=== PATIENT | male | born 1935 | race Caucasian/White ===

== ENCOUNTER → 2017-03-07 13:31 | Outpatient (CLI) | payer MEDICARE, MEDICAID, SELFPAY ==
[2017-03-07 14:32] LABS: Basophils % 0.5 % (0.1-2.0); Eosinophils # 0.1 K/mm3 (0.0-0.4); Eosinophils % 1.4 % (0.1-12.0); Hematocrit 48.4 % (42.0-52.0); Hemoglobin 15.6 g/dL (14.1-18.0); Lymphocytes # 1.4 K/mm3 (0.7-4.5); Lymphocytes % 23.2 K/mm3 (10-50); Mean Corpuscular HGB Conc 32.3 g/dL (31.8-35.4); Mean Corpuscular Hemoglobin 29.2 pg (27.0-31.2); Mean Corpuscular Volume 90.4 fl (80-94); Monocytes # 0.4 K/mm3 (0.1-1.0); Monocytes % 6.2 % (1.7-9.3); Neutrophils # 4.2 K/mm3 (1.8-7.8); Neutrophils % 68.6 % (37.0-80.0); Platelet Count 138 K/mm3 (142-424); Red Blood Count 5.36 M/mm3 (4.60-6.20); Red Cell Distribution Width 13.6 % (11.5-17.5); White Blood Count 6.1 K/mm3 (4.8-10.8)
[2017-03-07 14:49] LABS: Hemoglobin A1C 6.2 % (0.0-7.0)
[2017-03-07 17:56] LABS: Alanine Aminotransferase 18 U/L (12-78); Albumin Level 4.1 gm/dL (3.4-5.0); Albumin/Globulin Ratio 1.5 (1.1-1.8); Alkaline Phosphatase 103 U/L (46-116); Aspartate Amino Transferase 12 U/L (15-37); Bilirubin,Total 0.6 mg/dL (0.2-1.0); Blood Urea Nitrogen 12 mg/dL (7-18); Calcium 9.1 mg/dL (8.5-10.1); Carbon Dioxide 29 mmol/L (21.0-32.0); Chloride 102 mmol/L (98-107); Creatinine,Serum 0.93 mg/dL (0.70-1.30); Estimated Glomerular Filt Rate > 60 ml/min (>60); GFR (African American) > 60 ML/MIN (>60); Globulin 2.7 gm/dl (1.3-3.2); Glucose 85 mg/dL (74-106); Sodium 138 mmol/L (136-145); Thyroid Stimulating Hormone 3.46 uIU/ml (0.358-3.740); Total Protein,Serum 6.8 gm/dL (6.4-8.2)
== END ==
PROVIDERS: PCP Nurse Practitioner Family; Visit Provider Nurse Practitioner Family
DX: R73.9 Hyperglycemia, unspecified (principal); E03.9 Hypothyroidism, unspecified
CPT/HCPCS: 36415; 80053; 83036; 84443; 85025

== ENCOUNTER → 2017-08-05 14:47 | Outpatient (CLI) | payer MEDICARE, MEDICAID, SELFPAY ==
--- NOTE | 2017-08-05 14:54 | XR_ITS ---
XR foot LT min 3V HISTORY: ITS.REASON: ATTN TO 2ND TOE, LT FOOT PAIN ORDERING PHYSICIAN: Zee Piña PATIENT AGE: 81 years COMPARISON: None FINDINGS: There is mild hallux valgus with mild osteoarthritic change of the first metatarsophalangeal joint. There is a well-circumscribed defect at the distal and medial aspect of the first metatarsal with some mild overlying soft tissue swelling. Gout is a consideration with a punched out lesion. No acute fracture or dislocation is evident. There is mild flexion of the toes. Mild hypertrophic changes are present along the dorsal distal aspect of the talus. IMPRESSION: 1. Punched out appearing lesion of the distal first metatarsal with soft tissue swelling compatible with gout with mild hallux valgus. 2. Otherwise negative
== END ==
PROVIDERS: PCP Nurse Practitioner Family; Visit Provider Nurse Practitioner Family
DX: M79.672 Pain in left foot (principal)
CPT/HCPCS: 73630

== ENCOUNTER → 2017-08-08 09:05 | Outpatient (CLI) | payer MEDICARE, MEDICAID, SELFPAY ==
[2017-08-08 09:46] LABS: Basophils % 0.6 % (0.1-2.0); Eosinophils # 0.1 K/mm3 (0.0-0.4); Eosinophils % 1.4 % (0.1-12.0); Hematocrit 53.1 % (42.0-52.0); Hemoglobin 16.8 g/dL (14.1-18.0); Lymphocytes # 1.1 K/mm3 (0.7-4.5); Lymphocytes % 17.7 K/mm3 (10-50); Mean Corpuscular HGB Conc 31.7 g/dL (31.8-35.4); Mean Corpuscular Hemoglobin 28.9 pg (27.0-31.2); Mean Corpuscular Volume 91.2 fl (80-94); Monocytes # 0.4 K/mm3 (0.1-1.0); Neutrophils # 4.6 K/mm3 (1.8-7.8); Neutrophils % 73.3 % (37.0-80.0); Platelet Count 137 K/mm3 (142-424); Red Blood Count 5.82 M/mm3 (4.60-6.20); Red Cell Distribution Width 14.1 % (11.5-17.5); White Blood Count 6.3 K/mm3 (4.8-10.8)
[2017-08-08 10:40] LABS: Hemoglobin A1C 5.6 % (0.0-7.0)
[2017-08-08 10:42] LABS: Alanine Aminotransferase 18 U/L (12-78); Albumin/Globulin Ratio 1.5 (1.1-1.8); Alkaline Phosphatase 86 U/L (46-116); Anion Gap 13.3 mEq/L (5-15); Aspartate Amino Transferase 4 U/L (15-37); Bilirubin,Total 0.6 mg/dL (0.2-1.0); Blood Urea Nitrogen 17 mg/dL (7-18); Calcium 9.1 mg/dL (8.5-10.1); Carbon Dioxide 30 mmol/L (21.0-32.0); Chloride 105 mmol/L (98-107); Chol/HDL Ratio 4.2 (1-3.5); Cholesterol 151 mg/dL (140-200); Creatinine,Serum 1.07 mg/dL (0.70-1.30); Creatinine,Urine Random 68 mg/dL (20-320); Estimated Glomerular Filt Rate 67 ml/min (>60); GFR (African American) 81 ML/MIN (>60); Globulin 2.7 gm/dl (1.3-3.2); Glucose 124 mg/dL (74-106); HDL Cholesterol 36 mg/dL (27-67); LDL Cholesterol 95 mg/dL (0-130); Potassium 5.3 mmoL/L (3.5-5.1); Sodium 143 mmol/L (136-145); Total Protein,Serum 6.7 gm/dL (6.4-8.2); Triglycerides 99 mg/dL (30-200); Uric Acid 5.7 mg/dL (2.6-7.2); VLDL Cholesterol 20 mg/dL (0-40)
== END ==
PROVIDERS: Visit Provider Nurse Practitioner Family
DX: J41.0 Simple chronic bronchitis (principal); R73.03 Prediabetes; I10 Essential (primary) hypertension; E03.9 Hypothyroidism, unspecified; Q82.2 Congenital cutaneous mastocytosis; M79.672 Pain in left foot
CPT/HCPCS: 36415; 80053; 80061; 82043; 82570; 83036; 84443; 84550; 85025

== ENCOUNTER → 2018-03-18 10:19 | Outpatient (POV) | payer MEDICARE, MEDICAID, SELFPAY | PROVIDERS: Visit Provider Otolaryngology | DX: Z00.00 Encounter for general adult medical examination without abnormal findings (principal) ==

== ENCOUNTER → 2018-03-20 11:45 | Outpatient (CLI) | payer MEDICARE, MEDICAID, SELFPAY ==
[2018-03-20 13:01] LABS: Hemoglobin A1C 5.7 % (0.0-7.0)
[2018-03-20 13:04] LABS: Alanine Aminotransferase 21 U/L (12-78); Albumin Level 3.9 gm/dL (3.4-5.0); Albumin/Globulin Ratio 1.4 (1.1-1.8); Alkaline Phosphatase 77 U/L (46-116); Anion Gap 13.4 mEq/L (5-15); Aspartate Amino Transferase 12 U/L (15-37); Bilirubin,Total 0.7 mg/dL (0.2-1.0); Blood Urea Nitrogen 13 mg/dL (7-18); Calcium 8.7 mg/dL (8.5-10.1); Carbon Dioxide 29 mmol/L (21.0-32.0); Chloride 103 mmol/L (98-107); Chol/HDL Ratio 4.5 (1-3.5); Cholesterol 165 mg/dL (140-200); Creatinine,Serum 0.99 mg/dL (0.70-1.30); Estimated Glomerular Filt Rate 73 ml/min (>60); GFR (African American) 88 ML/MIN (>60); Globulin 2.7 gm/dl (1.3-3.2); Glucose 116 mg/dL (74-106); HDL Cholesterol 37 mg/dL (27-67); LDL Cholesterol 107 mg/dL (0-130); Potassium 4.4 mmoL/L (3.5-5.1); Sodium 141 mmol/L (136-145); Total Protein,Serum 6.6 gm/dL (6.4-8.2); Triglycerides 106 mg/dL (30-200); VLDL Cholesterol 21 mg/dL (0-40)
== END ==
PROVIDERS: Visit Provider Nurse Practitioner Family
DX: R73.03 Prediabetes (principal); E78.2 Mixed hyperlipidemia; E03.9 Hypothyroidism, unspecified
CPT/HCPCS: 36415; 80053; 80061; 83036; 84443

== ENCOUNTER → 2018-04-08 09:30 | Outpatient (POV) | payer MEDICARE, MEDICAID, SELFPAY ==
[2018-04-08 18:33] LABS: Prostate Specific Ag Screen 4.3 ng/mL (0.0-4.0)
== END ==
PROVIDERS: Urology; Visit Provider Otolaryngology
DX: Z12.5 Encounter for screening for malignant neoplasm of prostate (principal); R97.20 Elevated prostate specific antigen [PSA]
CPT/HCPCS: 36415; G0103

== ENCOUNTER → 2018-06-10 12:39 | Outpatient (CLI) | payer MEDICARE, MEDICAID, SELFPAY ==
--- NOTE | 2018-06-10 12:51 | CT_ITS ---
CT Temporal bone Without INDICATION: ITS.REASON: GRANULATION ANOMALY,EQUILIBRIUM DISORDER,PRESBYCUSIS BOTH EA ORDERING PHYSICIAN: Jaqui Chandler MD PATIENT AGE: 82 years COMPARISON: None TECHNIQUE: Axial images are obtained without contrast. Sagittal and coronal reformatted images are reviewed as well. All CT scans at the facility use one or more dose reduction, viz: automated exposure control, ma/kV adjustment per patient size (including targeted exams where dose is matched to indication, i.e. head), or iterative reconstruction technique. FINDINGS: Report is delayed waiting on appropriate history and appropriate reformats. Outside studies are attempted to be obtained but are reportedly not available. It appears that the patient has had a prior bilateral mastoidectomy with defects within the mastoid sinus inferiorly and laterally. Opacification is present involving the mastoid region on both sides with soft tissue density. Normal air ossicles are not identified on either side. There is opacification of the left middle ear with some mild expansion of the middle ear cavity. Gas density is noted within the left eustachian tube. Opacification also noted of the right middle ear not quite as extensive or expanded as the left side. There is an air present within the right eustachian tube. There is erosion of the scutum on both sides more extensive on the left. Incidental note made of mild mucosal thickening of the ethmoid sinuses. Severe osteoarthritic changes are present of the left TMJ. IMPRESSION: 1. There has been bilateral mastoidectomy with opacification of the mastoid sinuses. 2. Bilateral middle ear opacification more extensive on the left with some faint calcification within the opacification suggesting long-term inflammatory change. There is mild expansion of the left middle ear cavity. The inner ear ossicles are not identified on either side. 3. There is erosion of the scutum on both sides with partial epitympanic opacification bilaterally. 4. Severe osteoarthritis of the left TMJ
== END ==
PROVIDERS: PCP Internal Medicine Adolescent Medicine; Visit Provider Otolaryngology
DX: D72.0 Genetic anomalies of leukocytes (principal); R42 Dizziness and giddiness; H91.13 Presbycusis, bilateral; H69.83 Other specified disorders of Eustachian tube, bilateral
CPT/HCPCS: 70480

== ENCOUNTER → 2018-07-08 09:56 | Outpatient (POV) | payer MEDICARE, MEDICAID, SELFPAY | PROVIDERS: Visit Provider Otolaryngology | DX: Z00.00 Encounter for general adult medical examination without abnormal findings (principal) ==

== ENCOUNTER → 2018-10-15 09:46 | Outpatient (CLI) | payer MEDICARE, MEDICAID, SELFPAY ==
[2018-10-15 10:58] LABS: Hemoglobin A1C 5.8 % (0.0-7.0)
[2018-10-15 16:13] LABS: Alanine Aminotransferase 12 U/L (12-78); Albumin Level 3.7 gm/dL (3.4-5.0); Albumin/Globulin Ratio 1.4 (1.1-1.8); Alkaline Phosphatase 80 U/L (46-116); Anion Gap 12.5 mEq/L (5-15); Aspartate Amino Transferase 8 U/L (15-37); Bilirubin,Total 0.6 mg/dL (0.2-1.0); Blood Urea Nitrogen 14 mg/dL (7-18); Calcium 8.9 mg/dL (8.5-10.1); Carbon Dioxide 28 mmol/L (21.0-32.0); Chloride 104 mmol/L (98-107); Chol/HDL Ratio 4.9 (1-3.5); Cholesterol 157 mg/dL (140-200); Creatinine,Serum 1.01 mg/dL (0.70-1.30); Estimated Glomerular Filt Rate 71 ml/min (>60); GFR (African American) 86 ML/MIN (>60); Globulin 2.7 gm/dl (1.3-3.2); Glucose 126 mg/dL (74-106); HDL Cholesterol 32 mg/dL (27-67); LDL Cholesterol 105 mg/dL (0-130); Potassium 4.5 mmoL/L (3.5-5.1); Prostate Specific Ag, Diagnost 3.74 ng/mL (0.0-4.0); Sodium 140 mmol/L (136-145); Thyroid Stimulating Hormone 3.36 uIU/ml (0.358-3.740); Total Protein,Serum 6.4 gm/dL (6.4-8.2); Triglycerides 102 mg/dL (30-200); VLDL Cholesterol 20 mg/dL (0-40)
[2018-10-17 10:10] LABS: Creatinine, Urine 92.6 mg/dL (Not Estab.); Microalbumin, Urine 3.7 ug/mL (Not Estab.)
== END ==
PROVIDERS: Visit Provider Nurse Practitioner Family
DX: E11.9 Type 2 diabetes mellitus without complications (principal); N40.0 Benign prostatic hyperplasia without lower urinary tract symptoms; E03.9 Hypothyroidism, unspecified; I10 Essential (primary) hypertension; E78.2 Mixed hyperlipidemia; R97.20 Elevated prostate specific antigen [PSA]
CPT/HCPCS: 36415; 80053; 80061; 82043; 82570; 83036; 84153; 84443

== ENCOUNTER 2019-07-14 15:12 | Emergency (ER) | payer MEDICARE, MEDICAID, SELFPAY ==
[2019-07-14 15:13] VITALS: BP 180/86; PULSE 70; RESP 16; TEMP 36.6; O2SAT 94; BMI 33.8; BMI 34.9
--- NOTE | 2019-07-14 15:14 | CT_ITS ---
PROCEDURE: CT HEAD/BRAIN WO CON CLINICAL INDICATION: AMS, LOSS OF VISION, ACHING EYES AND ARMS COMPARISON: HEADWO CT head/brain wo con from 10/31/2017 TECHNIQUE: Axial images obtained. All CT scans at the facility use one or more dose reduction, viz: automated exposure control, ma/kV adjustment per patient size (including targeted exams where dose is matched to indication, i.e. head), or iterative reconstruction technique. FINDINGS: There is a large area of intraparenchymal hemorrhage in the left occipital lobe. This intraparenchymal hematoma measures 4.8 by 3.2 cm. There is associated contiguous acute hemorrhage into the left lateral ventricle. There is mild midline shift to the right at the level of the lateral ventricle of approximately 4 mm. There is mild dilatation of the right lateral ventricle compared to the previous study suggesting developing right-sided hydrocephalus. There is generalized atrophy with periventricular ischemic gliotic change. There has been prior bilateral mastoid surgery with opacified remaining mastoids and opacified left middle ear and external auditory canal with some thickening of the right tympanic membrane noted there is mucosal thickening of the ethmoid sinuses. 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 Dr. Ny was notified of the above findings by telephone 07/14/2019 at 3:30 p.m. Dictated by: Ousmane Diggs MD 07/14/2019 15:36 Electronically signed by Ousmane Diggs MD in [place] 07/14/2019 15:36
--- NOTE | 2019-07-14 15:16 | PC.NURSE ---
PT TO CT
--- NOTE | 2019-07-14 15:32 | PC.NURSE ---
speaking with CLARK
--- NOTE | 2019-07-14 15:32 | PC.NURSE ---
Called resp and advised them we were fixing to intubate pt
[2019-07-14 15:43] VITALS: BP 119/64; PULSE 78; RESP 16; O2SAT 100
--- NOTE | 2019-07-14 15:47 | XR_ITS ---
PROCEDURE: XR CHEST PORTABLE CLINICAL HISTORY: TUBE PLACEMENT Respiratory failure COMPARISON: CXR1 CHEST-PORTABLE from 08/12/2015 CXR CHEST(2 VIEWS-NOT PORTABLE) from 10/30/2015 [id number] XR ribs LT min 3V w CXR1V from 10/31/2017 FINDINGS: Endotracheal tube has been placed. The tip is in good position 3 cm above the hortensia. The tip is at the T5 level.. Normal heart size. There is some patchy density in the right lower lobe suggesting atelectasis or infiltrate. Bronchial thickening is noted. There is severe subacromial stenosis on the right consistent with rotator cuff tear. IMPRESSION: 1. Endotracheal tube in good position. 2. Patchy atelectasis or infiltrate in the right lower lobe Dictated by: Ousmane Diggs MD 07/14/2019 17:03 Electronically signed by Ousmane Diggs MD in [place] 07/14/2019 17:03
[2019-07-14 15:49] LABS: Chloride 101 mmol/L (98-107); Potassium 4.1 mmoL/L (3.5-5.1); Sodium 136 mmol/L (136-145)
--- NOTE | 2019-07-14 15:50 | PC.NURSE ---
calling [employer] to check flight status
[2019-07-14 15:52] LABS: Alanine Aminotransferase 11 U/L (12-78); Albumin Level 4.7 g/dl (3.5-5.0); Albumin/Globulin Ratio 1.7 (1.1-1.8); Alkaline Phosphatase 85 U/L (38-126); Anion Gap 11.1 mEq/L (5-15); Aspartate Amino Transferase 21 U/L (17-59); Bilirubin,Total 0.9 mg/dl (0.2-1.3); Blood Urea Nitrogen 12 mg/dl (9-20); Calcium 9.7 mg/dl (8.4-10.2); Carbon Dioxide 28 mmol/L (22.0-30.0); Creatinine Clearance Estimated 69 mL/min (50-200); Estimated Glomerular Filt Rate 81 ml/min (>60); GFR (African American) 98 ML/MIN (>60); Globulin 2.8 g/dL (1.3-3.2); Glucose 124 mg/dl (74-100); Total Protein,Serum 7.5 g/dl (6.3-8.2)
--- NOTE | 2019-07-14 15:54 | HMH.EDAMS ---
ED Disposition Clinical Impression: Altered mental status, Subarachnoid hemorrhage, Intraventricular hemorrhage, grade III Disposition: Xfer Short-Term Hosp Condition on Discharge: Critical Instructions: DI for Altered Mental Status Referrals: Provider,Referral, MD [Primary Care Provider] - - Critical Care Critical Care Time: Yes (75) Attestation: On 07/14/19, the high probability of a clinically significant, sudden or life threatening deterioration of the following system(s) required my full and direct attention, intervention and personal management. The time I documented below is in addition to time spent performing reported procedures but includes the following listed in this critical care notation. Total Critical Care Time: 75 Vital system(s) involved:: Central Nervous System, Shock (Hemorrhage) My critical care processes included: Assessment & monitoring of V/S, Initial and Re-exams, Data Review/Interpretation, Coordinating Care, Medication Orders and management, Documentation Medical Decision Making - Medical Records Medical records reviewed: Yes: I reviewed the patient's medical records. - Josue Inquiry Pt receiving controlled substance: No Vital Signs: 07/14/19 15:13 Temperature 97.8 F Temperature Source Oral Pulse Rate [Right Radial] 70 Respiratory Rate 16 Blood Pressure [Right Arm] 180/86 H Blood Pressure Mean [Right Arm] 117 Blood Pressure Source [Right Arm] Automatic Cuff Blood Pressure Position [Right Arm] Sitting 02 Sat by Pulse Oximetry 94 L Oxygen Delivery Method Room Air - Lab Data Lab results reviewed: Yes: I reviewed the patient's lab results. Lab Results 07/14/19 15:30: Sodium 136, Potassium 4.1, Chloride 101, Carbon Dioxide 28, Anion Gap 11.1, BUN 12, Creatinine 0.90, Estimated Creat Clear 69, Estimated GFR 81, Est GFR ( Amer) 98, Glucose 124 H, Calcium 9.7, Total Bilirubin 0.9, AST 21, ALT 11 L, Alkaline Phosphatase 85, Total Protein 7.5, Albumin 4.7, Globulin 2.8, Albumin/Globulin Ratio 1.7 Result diagrams: 07/14/19 15:30 Orders (Tests/Meds): ORDERS Category Date Time Status Chest XR -- portable [XR chest portable] Stat Exams 07/14/19 15:47 Ordered Complete Blood Count Auto Diff Stat Lab 07/14/19 15:30 Received UA [Urinalysis and Microscopic] Stat Lab 07/14/19 15:14 Ordered - CT Data CT Scan: Head Time Received: 15:[address] Reviewed: Yes: I have reviewed the patient's CT results, I discussed the CT results w/the radiologist, I have viewed the radiologist's interpretation Preliminary Findings: Abnormal (Patient has an acute left occipital hemorrhage associated with a left ventricular intraventricular hemorrhage with a 4 mm midline shift) Medical Decision Narrative: Spoke to Dr. Calhoun at [facility] for transfer. Altered Mental Status HPI - General Chief Complaint: Altered Mental Status Stated Complaint: AMS, LOSS OF VISION Time Seen by Provider: 07/14/19 15:54 Mode of Arrival: Wheelchair Source of Information: Patient, Medical Record Limitations: No Limitations Description of Symptoms (Recalled from ER Triage Doc. by RN): PT BROUGHT TO ED VIA HOME HEALTH NURSE WITH C/O AMS, LOSS OF VISION, AN ACHING IN HIS EYES AND ARMS. HOME HEALTH STAFF STATES THAT [facility] WERE WITH PT THIS MORNING AND STATE THAT HE WAS AT NORMAL BASELINE. PT STATES THAT HE CANNOT SEE ME. PT IS ABLE TO ANSWER MY QUESTIONS, BUT ACTS TIRED. - History of Present Illness HPI narrative: 83-year-old male complains of aching in his arms and right-sided facial droop which just recently started today. Patient states otherwise he feels well. He is slurring his speech and does have some dysarthria as well. Patient is being sent to CT for stroke protocol. Patient denies any cough or shortness of breath. Patient denies any nausea or vomiting. Patient also denies any sore throat or headache. Able to obtain the rest of the history from the patient. Patient came back from CT and
[2019-07-14 16:01] LABS: Basophils # 0.1 K/mm3 (0-0.2); Basophils % 0.5 % (0.1-2.0); Eosinophils # 0.1 K/mm3 (0.0-0.4); Eosinophils % 1.2 % (0.1-12.0); Hematocrit 50.7 % (42.0-52.0); Hemoglobin 16.8 g/dL (14.1-18.0); Lymphocytes % 10.5 % (10-50); Mean Corpuscular Volume 90.7 fl (80-94); Monocytes # 0.8 K/mm3 (0.1-1.0); Monocytes % 7.8 % (1.7-9.3); Neutrophils # 7.7 K/mm3 (1.8-7.8); Platelet Count 176 K/mm3 (142-424); Red Blood Count 5.59 M/mm3 (4.60-6.20); Red Cell Distribution Width 14.2 % (11.5-17.5); White Blood Count 9.6 K/mm3 (4.8-10.8)
--- NOTE | 2019-07-14 16:02 | PC.NURSE ---
[place] [facility] will be arriving in approx. 10 mins
[2019-07-14 16:08] LABS: ABG Base Excess -4.2 mmol/L (-2.4-2.3); ABG HCO3 21.4 mmhg (22.0-26.0); ABG Oxygen Saturation 100 % (90-100); ABG PCO2 39.2 mmhg (35.0-45.0); ABG PH 7.35 mmol/L (7.35-7.45); ABG TCO2 22.6 mmhg (23-27)
[2019-07-14 16:09] LABS: Allen's Test Non Applicable; Oxygen 100% AMBU %
[2019-07-14 16:10] LABS: Source Left Brachial
[2019-07-14 16:13] VITALS: BP 97/68; PULSE 83; RESP 16; O2SAT 98
--- NOTE | 2019-07-14 16:13 | PC.NURSE ---
Unable to place OG d/t increased ICP while trying to insert, notified
--- NOTE | 2019-07-14 16:21 | PC.NURSE ---
[employer] [facility] here to transport pt
[2019-07-14 16:24] VITALS: BP 99/64; PULSE 76; RESP 16; TEMP 36.8; O2SAT 98
--- NOTE | 2019-07-14 16:25 | PC.NURSE ---
[facility] [employer] LOADING PT UP ONTO STRETCHER AT THIS TIME.
[2019-08-06 08:50] LABS: POC Glucose,Bedside 102 (70-110)
== END 2019-07-14 16:41 | disposition short-term general hospital (02) ==
PROVIDERS: Emergency Provider Family Medicine; PCP Nurse Practitioner Family
DX: I60.9 Nontraumatic subarachnoid hemorrhage, unspecified (principal); I61.5 Nontraumatic intracerebral hemorrhage, intraventricular; F17.210 Nicotine dependence, cigarettes, uncomplicated; J44.9 Chronic obstructive pulmonary disease, unspecified; I10 Essential (primary) hypertension; E11.9 Type 2 diabetes mellitus without complications; Z88.0 Allergy status to penicillin; Z88.2 Allergy status to sulfonamides; Z88.5 Allergy status to narcotic agent
CPT/HCPCS: 70450; 71045; 80053; 82803; 82962; 85025; 96365; 96367; 96375; 99285; J0330; J2704

== ENCOUNTER 2019-08-11 22:31 | Emergency (ER) | payer MEDICARE, MEDICAID, SELFPAY ==
[2019-08-11 22:33] VITALS: BP 102/59; PULSE 85; RESP 16; TEMP 36.9; O2SAT 95; BMI 20.5
[2019-08-11 23:04] VITALS: BP 98/77; PULSE 86; O2SAT 95
--- NOTE | 2019-08-11 23:12 | XR_ITS ---
PROCEDURE: XR KUB CLINICAL INDICATION: g tube placement COMPARISON: ABDPELW/O CT ABD PELVIS W/O CONTRAST from 08/12/2015 FINDINGS: AP view of the abdomen is submitted with contrast injected into the G-tube which appears to be within the lumen of the stomach. No obvious contrast extravasation. IMPRESSION: G-tube in satisfactory position. Dictated by: Ousmnae Diggs MD 08/12/2019 07:40 Electronically signed by Ousmnae Diggs MD in [place] 08/12/2019 07:40
--- NOTE | 2019-08-11 23:12 | HMH.EDRECH ---
ED Disposition Clinical Impression: Gastrojejunostomy tube dislodgement Disposition: Xfer SNF Condition on Discharge: Good Instructions: DI for Feeding Tube Exchange Additional Instructions: resume prev orders Referrals: Provider,Referral, [Primary Care Provider] - - Critical Care Critical Care Time: No Attestation: On 08/11/19, the high probability of a clinically significant, sudden or life threatening deterioration of the following system(s) required my full and direct attention, intervention and personal management. The time I documented below is in addition to time spent performing reported procedures but includes the following listed in this critical care notation. Medical Decision Making - Medical Records Medical records reviewed: Yes: I reviewed the patient's medical records. - Josue Inquiry Pt receiving controlled substance: No Vital Signs: 08/11/19 22:33 08/11/19 23:04 Temperature 98.4 F Temperature Source Oral Pulse Rate [Right Brachial] 85 86 Respiratory Rate 16 Blood Pressure [Right Arm] 102/59 L 98/77 L Blood Pressure Mean [Right Arm] 73 84 Blood Pressure Source [Right Arm] Automatic Cuff Blood Pressure Position [Right Arm] Sitting 02 Sat by Pulse Oximetry 95 95 Oxygen Delivery Method Room Air Room Air Orders (Tests/Meds): ORDERS Category Date Time Status KUB (single view) [XR KUB] Stat Exams 08/11/19 23:12 Taken - Radiology Data #1 Image(s): KUB Image Reviewed: Yes I reviewed the patient's radiology image Preliminary Findings: Normal/NAD (g tube ok ) - Physician Consults Physician Consulted: allran Reason -: Pt condition Recheck HPI - General Chief Complaint: Recheck/Abnormal Lab/Rx Stated Complaint: G tube Time Seen by Provider: 08/11/19 23:12 Mode of Arrival: EMS Source of Information: Patient, EMS, Medical Record Limitations: Physical Limitations Description of Symptoms (Recalled from ER Triage Doc. by RN): Patient brought in by [facility] for pulling out his G tube. - History of Present Illness HPI narrative: had subarachnoid and was sent to and has peg placed about 2 weeks ago and at [facility] and pulled tube out luis MACK complaint: other (pulled out g tube ) Initial visit (ago): hour(s) Returns today for: other (pulled out g tube ) Associated symptoms: none - Related Data Home Medications Medication Instructions Recorded Confirmed levothyroxine 75 mcg capsule 75 mcg PO DAILY 11/05/17 01/21/19 nebivolol 5 mg tablet 5 mg PO DAILY 11/05/17 01/21/19 salmeterol 50 mcg/dose blister 1 inh INHALATION BID 11/05/17 01/21/19 powder for inhalation tiotropium bromide 18 mcg capsule 1 cap INHALATION DAILY 11/05/17 01/21/19 with inhalation device Previous Rx's Medication Instructions Recorded Mupirocin [Bactroban 2% Ointment 1 applicatio TP TID 7 Days #1 tube 10/01/18 22gm tube] Allergies Allergy/AdvReac Type Severity Reaction Status Date / Time codeine [CODEINE] Allergy Unknown Verified 01/21/19 10:34 penicillin G [PENICILLIN G] Allergy Unknown Verified 01/21/19 10:34 Sulfa (Sulfonamide Allergy Unknown Verified 01/21/19 10:34 Antibiotics) [SULFA (SULFONAMIDE ANTIBIOTICS)] H History - Hepatitis A Screen Drug use history?: No High risk sexual behaviors?: No History of sexually transmitted infection?: No Currently employed?: No Childcare worker?: No Do you have indoor plumbing?: Yes Do you have electricity?: Yes Attestation statement:: This patient has been screened for Hepatitis A risk factors. I have reviewed the patient's past medical history: Yes Medical History: Reports:: Asthma, Chronic Obstructive Pulmonary Disease (COPD), Hypertension Denies:: Diabetes Mellitus Type 1, Diabetes Mellitus Type 2 Other Medical History: Reports: Arthritis, Glaucoma Laterality Cases: Bilateral: Myringotomy (Ear Tubes) Other Surgeries: Yes: Other Amputation: No Fractures: No Comment: Hemorr
--- NOTE | 2019-08-11 23:21 | PC.NURSE ---
gtube placed to left upper quad abd. gastrograffin used to check placement. sent vrad for confirmation.
[2019-08-11 23:53] VITALS: BP 100/74; PULSE 110; RESP 18; TEMP 36.8; O2SAT 96
== END 2019-08-12 00:13 ==
PROVIDERS: Emergency Provider Emergency Medicine
DX: T85.528A Displacement of other gastrointestinal prosthetic devices, implants and grafts, initial encounter (principal); J44.9 Chronic obstructive pulmonary disease, unspecified; I10 Essential (primary) hypertension; F17.210 Nicotine dependence, cigarettes, uncomplicated; Z79.899 Other long term (current) drug therapy; Z88.0 Allergy status to penicillin; Z88.2 Allergy status to sulfonamides; Z88.5 Allergy status to narcotic agent
CPT/HCPCS: 43762; 74018; 99282; 99283

== ENCOUNTER 2019-11-23 14:49 | Emergency (ER) | payer MEDICARE, MEDICAID, SELFPAY ==
[2019-11-23] VITALS (8 sets, daily range): BP systolic 95–134; BP diastolic 56–74; PULSE 98–105; RESP 17–20; TEMP 36.5; O2SAT 94–98; BMI 22.2
--- NOTE | 2019-11-23 15:04 | HMH.EDGENADL ---
ED Disposition Clinical Impression: Urinary catheter complication Qualifiers: Encounter type: initial encounter Qualified Code(s): T83.9XXA - Unspecified complication of genitourinary prosthetic device, implant and graft, initial encounter Disposition: Xfer SNF Condition on Discharge: Fair Instructions: How to Care for Your Hopson Catheter -- Male Referrals: Provider,Referral, [Referring] - Time of Disposition: 16:44 - Critical Care Critical Care Time: No Attestation: On , the high probability of a clinically significant, sudden or life threatening deterioration of the following system(s) required my full and direct attention, intervention and personal management. The time I documented below is in addition to time spent performing reported procedures but includes the following listed in this critical care notation. Medical Decision Making - Medical Records Medical records reviewed: Yes: I reviewed the patient's medical records. - Josue Inquiry Pt receiving controlled substance: No Vital Signs: 11/23/19 14:51 11/23/19 15:36 Temperature 97.7 F Temperature Source Axillary Pulse Rate [Right Radial] 105 H 104 H Respiratory Rate 20 18 Blood Pressure [Right Arm] 134/70 95/56 L Blood Pressure Mean [Right Arm] 91 69 Blood Pressure Source [Right Arm] Automatic Cuff Automatic Cuff Blood Pressure Position [Right Arm] Sitting Supine 02 Sat by Pulse Oximetry 98 95 Oxygen Delivery Method Room Air - Lab Data Lab Results 11/23/19 15:25: WBC 8.9, RBC 4.17 L, Hgb 13.0 L, Hct 39.0 L, MCV 93.6, MCH 31.3 H, MCHC 33.4, RDW 14.8, Plt Count 312, MPV 9.4, Neut % (Auto) 79.8, Lymph % (Auto) 12.3, [place] % (Auto) 6.4, Eos % (Auto) 1.2, Baso % (Auto) 0.4, Neut # (Auto) 7.1, Lymph # (Auto) 1.1, [place] # (Auto) 0.6, Eos # (Auto) 0.1, Baso # (Auto) 0.0 11/23/19 15:25: Sodium 135 L, Potassium 6.6 H*, Chloride 95 L, Carbon Dioxide 34 H, Anion Gap 12.6, BUN 38 H, Creatinine 0.60 L, Estimated Creat Clear 50, Estimated GFR 129, Est GFR ( Amer) 156, Glucose 220 H, Calcium 9.5 11/23/19 15:45: Urine Color Dk yellow, Urine Appearance Cloudy, Urine pH 8.0, Ur Specific [place] 1.010, Urine Protein Trace, Urine Glucose (UA) Negative, Urine Ketones Negative, Urine Blood 3+, Urine Nitrate Negative, Urine Bilirubin Negative, Urine Urobilinogen 1.0, Ur Leukocyte Esterase Trace, Urine RBC Tntc, Urine WBC 3-5 11/23/19 16:20: Potassium 4.4 D Result diagrams: 11/23/19 15:25 11/23/19 16:20 Medical Decision Narrative: In summary this is an 84-year-old male presenting to the emergency department with urinary catheter complication. On arrival patient is clinically stable. Does have roosevelt blood from the urethral meatus. Will obtain CBC to assess for anemia. Will obtain metabolic panel to assess for renal function. Catheter able to be placed by nursing staff. Minimal difficulty. Return of urine. Laboratory results show no significant anemia or acute kidney injury. Incidentally, patient was found to be hyperkalemic with potassium of 6.6. Will obtain redraw. Repeat potassium 4.4. Patient's urinary catheter is functioning appropriately. Has yellowish urine in the bag. No active bleeding. Spoke with the assisted, regarding plans of care. They do not have any concerns other than the difficult Hopson placement. Patient will be discharged General Adult HPI - General Stated complaint: bleeding from penis Time Seen by Provider: 11/23/19 15:05 Mode of Arrival: EMS Limitations: Physical Limitations - History of Present Illness HPI narrative: 84-year-old male presenting to the emergency department with a urinary catheter complication. Patient is nonverbal. EMS and assisted staff state that he had his catheter removed today for routine change. When the new catheter was placed they only got blood back. Were unable to flush. They removed the catheter entirely and patient continued to have bleeding from the head of his penis. On arri
--- NOTE | 2019-11-23 15:13 | PC.NURSE ---
contacted [facility] to see if pt needs to have a norman catheter replaced. Staff states pt had a catheter placed last week because he got lasix and has a wound on his buttocks and they did not want pt to stay wet because of wound. States they do not think pt needs to continue to have catheter. States their main concern was the bleeding from penis. notified ER of the above.
--- NOTE | 2019-11-23 15:15 | PC.NURSE ---
contacted [facility] to ask is pt is on blood thinner and to request they send a mar. States pt is on Plavix relayed information to EDISON MACK.
[2019-11-23 15:41] LABS: Basophils % 0.4 % (0.1-2.0); Eosinophils # 0.1 K/mm3 (0.0-0.4); Eosinophils % 1.2 % (0.1-12.0); Lymphocytes # 1.1 K/mm3 (0.7-4.5); Lymphocytes % 12.3 % (10-50); Mean Corpuscular HGB Conc 33.4 g/dL (31.8-35.4); Mean Corpuscular Hemoglobin 31.3 pg (27.0-31.2); Mean Corpuscular Volume 93.6 fl (80-94); Mean Platelet Volume 9.4 fl (7.4-10.4); Monocytes # 0.6 K/mm3 (0.1-1.0); Monocytes % 6.4 % (1.7-9.3); Neutrophils # 7.1 K/mm3 (1.8-7.8); Neutrophils % 79.8 % (37.0-80.0); Platelet Count 312 K/mm3 (142-424); Red Blood Count 4.17 M/mm3 (4.60-6.20); Red Cell Distribution Width 14.8 % (11.5-17.5); White Blood Count 8.9 K/mm3 (4.8-10.8)
[2019-11-23 15:43] LABS: Chloride 95 mmol/L (98-107); Sodium 135 mmol/L (136-145)
[2019-11-23 15:46] LABS: Blood Urea Nitrogen 38 mg/dl (9-20); Calcium 9.5 mg/dl (8.4-10.2); Carbon Dioxide 34 mmol/L (22.0-30.0); Creatinine Clearance Estimated 50 mL/min (50-200); Estimated Glomerular Filt Rate 129 ml/min (>60); GFR (African American) 156 ML/MIN (>60); Glucose 220 mg/dl (74-100)
[2019-11-23 15:52] LABS: Microscopic, Urine URINE MICROSCOPIC (MICROSCOPIC)
[2019-11-23 15:53] LABS: Appearance,Urine CLOUDY (Clear); Bilirubin,Urine Negative (Negative); Blood, Urine 3+ (Negative); Color,Urine DK YELLOW (Yellow); Glucose,Urine (UA) Negative (Negative); Ketones,Urine Negative (Negative); Leukocyte Esterase,Urine TRACE (Negative); Nitrate,Urine Negative (Negative); Protein,Urine TRACE (Negative)
[2019-11-23 15:59] LABS: Anion Gap 12.6 mEq/L (5-15); Potassium 6.6 mmoL/L (3.5-5.1)
--- NOTE | 2019-11-23 16:00 | PC.NURSE ---
EDISON MACK notified per tonny evans of critical potassium result
[2019-11-23 16:03] LABS: RBC,Urine TNTC #/hpf (0-3)
[2019-11-23 16:31] LABS: Potassium 4.4 mmoL/L (3.5-5.1)
--- NOTE | 2019-11-23 16:37 | PC.NURSE ---
notified ER of repeat potassium 4x4
--- NOTE | 2019-11-23 16:43 | PC.NURSE ---
report called to caren cheney lpn at [facility] at this time attempting to contact [facility] for transport.
--- NOTE | 2019-11-23 17:04 | PC.NURSE ---
notified [facility] of transport, states they will have to wait until the other truck is back in town.
--- NOTE | 2019-11-23 18:30 | PC.NURSE ---
[facility] here for transport of pt but unable to take pt at this time r/t they got an emergency call
--- NOTE | 2019-11-23 20:20 | PC.NURSE ---
ems here for transport
== END 2019-11-23 20:33 ==
PROVIDERS: Emergency Provider Emergency Medicine; PCP Internal Medicine Adolescent Medicine
DX: T83.9XXA Unspecified complication of genitourinary prosthetic device, implant and graft, initial encounter (principal); J45.909 Unspecified asthma, uncomplicated; I10 Essential (primary) hypertension; E11.9 Type 2 diabetes mellitus without complications; Z87.891 Personal history of nicotine dependence; Z79.899 Other long term (current) drug therapy; Z88.0 Allergy status to penicillin; Z88.2 Allergy status to sulfonamides; Z88.5 Allergy status to narcotic agent
CPT/HCPCS: 36415; 80048; 81001; 84132; 85025; 99285

== ENCOUNTER 2019-12-05 06:49 | Inpatient (IN) | payer MEDICAID, OTHER, MEDICARE, SELFPAY ==
[2019-12-05] VITALS (11 sets, daily range): BP systolic 101–151; BP diastolic 59–97; PULSE 96–114; RESP 18–22; TEMP 36.6–37.6; O2SAT 89–98; BMI 24.3; BMI 19.8
--- NOTE | 2019-12-05 07:25 | HMH.EDSOB ---
ED Disposition Clinical Impression: Acute UTI (urinary tract infection), SIRS (systemic inflammatory response syndrome), SHIKHA (acute kidney injury) Hematuria Qualifiers: Hematuria type: gross Qualified Code(s): R31.0 - Gross hematuria Disposition: Admitted As Inpatient Condition on Discharge: Fair Instructions: DI for Urinary Tract Infection (UTI), DI for Urinary Tract Infection in Children Referrals: Redd Ramirez MD [Primary Care Provider] - - Critical Care Critical Care Time: No Attestation: On 12/05/19, the high probability of a clinically significant, sudden or life threatening deterioration of the following system(s) required my full and direct attention, intervention and personal management. The time I documented below is in addition to time spent performing reported procedures but includes the following listed in this critical care notation. Medical Decision Making - Medical Records Medical records reviewed: Yes: I reviewed the patient's medical records. - Josue Inquiry Pt receiving controlled substance: No Vital Signs: 12/05/19 07:14 12/05/19 07:22 12/05/19 08:17 Temperature 97.8 F Temperature Source Rectal Pulse Rate [Right] 114 H 104 H 103 H Respiratory Rate 20 Blood Pressure [Left Arm] 114/62 101/63 L 103/64 L Blood Pressure Mean [Left Arm] 79 75 77 Blood Pressure Source [Left Arm] Automatic Cuff Automatic Cuff Automatic Cuff Blood Pressure Position [Left Arm] Supine Sitting Sitting 02 Sat by Pulse Oximetry 89 L 96 92 L Oxygen Delivery Method Room Air Nasal Cannula Nasal Cannula Oxygen Flow Rate (LPM) 2 2 12/05/19 08:35 Temperature Temperature Source Pulse Rate [Right] 105 H Respiratory Rate Blood Pressure [Left Arm] 106/64 L Blood Pressure Mean [Left Arm] 78 Blood Pressure Source [Left Arm] Automatic Cuff Blood Pressure Position [Left Arm] Sitting 02 Sat by Pulse Oximetry 93 L Oxygen Delivery Method Nasal Cannula Oxygen Flow Rate (LPM) 2 - Lab Data Lab results reviewed: Yes: I reviewed the patient's lab results. Lab Results 12/05/19 07:18: WBC 13.4 H, RBC 3.69 L, Hgb 11.4 L, Hct 33.7 L, MCV 91.3, MCH 30.8, MCHC 33.7, RDW 15.0, Plt Count 223, MPV 8.9, Neut % (Auto) 81.8 H, Lymph % (Auto) 9.3 L, [place] % (Auto) 8.1, Eos % (Auto) 0.4, Baso % (Auto) 0.4, Neut # (Auto) 11.0 H, Lymph # (Auto) 1.3, [place] # (Auto) 1.1 H, Eos # (Auto) 0.1, Baso # (Auto) 0.1 12/05/19 07:18: Sodium 141, Potassium 4.8, Chloride 100, Carbon Dioxide 34 H, Anion Gap 11.8, BUN 58 H, Creatinine 1.70 H, Estimated Creat Clear 35, Estimated GFR 39 L, Est GFR ( Amer) 47 L, Glucose 171 H, Calcium 9.8, Troponin I 0.03, Lipase 22 L 12/05/19 07:18: Lactate 2.0 12/05/19 07:18: Total Bilirubin 1.1, Direct Bilirubin 0.2, Conjugated Bilirubin 0.0, Indirect Bilirubin 0.9, Unconjugated Bilirubin 0.9, AST 27, ALT 23, Alkaline Phosphatase 98, Total Protein 6.4, Albumin 3.0 L 12/05/19 07:18: Total Bilirubin 1.1, Direct Bilirubin 0.2, Conjugated Bilirubin 0.0, Indirect Bilirubin 0.9, Unconjugated Bilirubin 0.9, AST 28, ALT 24, Alkaline Phosphatase 98, Total Protein 6.4, Albumin 3.0 L 12/05/19 07:18: NT-Pro-B Natriuret Pep 778 H 12/05/19 07:18: SARS-CoV-2 IgG Ab (Rapid) Negative, SARS-CoV-2 IgM Ab (Rapid) Negative 12/05/19 07:40: Urine Color Yellow, Urine Appearance Clear, Urine pH 5.0, Ur Specific [place] >= 1.030, Urine Protein 2+, Urine Glucose (UA) Negative, Urine Ketones Trace, Urine Blood 3+, Urine Nitrate Negative, Urine Bilirubin Negative, Urine Urobilinogen 0.2, Ur Leukocyte Esterase 1+ A, Urine RBC 10-20, Urine WBC 5-10, Ur Squamous Epith Cells 3-5, Calcium Oxalate Crystal Trace, Amorphous Sediment 1+, Urine Bacteria 1+ Result diagrams: 12/05/19 07:18 12/05/19 07:18 Orders (Tests/Meds): ORDERS Category Date Time Status CT abdomen pelvis wo con Stat Cat Scan 12/05/19 07:31 Taken Troponin I Q3H Lab 12/05/19 10:30 Ordered Troponin I Q3H Lab 12/05/19 13:30 Ordered Blood Culture Stat Micro 12/05/19 07:18
--- NOTE | 2019-12-05 07:27 | XR_ITS ---
PROCEDURE: XR CHEST PORTABLE CLINICAL HISTORY: ams COMPARISON: CR CXR CHEST(2 VIEWS-NOT PORTABLE) from 10/30/2015 CR [id number] XR ribs LT min 3V w CXR1V from 10/31/2017 CR XR CHEST PORTABLE from 07/14/2019 FINDINGS: The cardiomediastinal silhouette and pulmonary vascularity are within normal limits. Mild interstitial prominence is seen in both lower lobes more prominent right side than left. There is no definite acute infiltrate. There is no pleural fluid. Prominent degenerate changes seen in both shoulders but more IMPRESSION: Mild chronic basilar changes, no acute chest pathology noted Dictated by: Dr. Dl Nguyen MD 12/05/2019 08:34 Dr. Dl Nguyen MD in [place] 12/05/2019 08:34
--- NOTE | 2019-12-05 07:31 | CT_ITS ---
PROCEDURE: CT ABDOMEN PELVIS WO CON CLINICAL INDICATION: hematuria COMPARISON: CT ABDPELW/O CT ABD PELVIS W/O CONTRAST from 08/12/2015 TECHNIQUE: Axial images obtained with sagittal and coronal reformats. All CT scans at the facility use one or more dose reduction, viz: automated exposure control, ma/kV adjustment per patient size (including targeted exams where dose is matched to indication, i.e. head), or iterative reconstruction technique. FINDINGS: Lower thorax: There are coarse bronchovascular markings in the right lower lobe primarily posterior basilar segment and cannot exclude a minimal acute pneumonic infiltrate superimposed upon underlying chronic changes. ABDOMEN: Liver: No masses or biliary dilatation. Gallbladder: The gallbladder is somewhat distended but shows no definite gallstones or sludge. Pancreas: No masses or peripancreatic fluid collections. Spleen: There is borderline splenomegaly Adrenals: unremarkable Kidneys/ureters: The kidneys are normal in size. There is an exophytic isodense mass midpole left kidney measuring approximately 1.5 by 0.8 cm. A small exophytic renal cell carcinoma cannot be excluded, a repeat CT abdomen with IV contrast may be of benefit. An even smaller isodense masses seen adjacent to the midpole right kidney. There are no calculi and there is no obstructive uropathy of either kidney. There is a small benign-appearing cystic lesion lower pole right kidney ABDOMEN & PELVIS: Stomach bowel: The stomach is normal in all were all size and appearance however there is a gastrostomy feeding tube entering the body of the stomach percutaneously from the midline.. The appendix is normal in caliber and retrocecal in location. There is a large amount stool in the cecum and ascending colon , transverse colon and proximal descending colon. There is a very large amount of stool in the rectum and a fecal impaction is an outside possibility. Peritoneum: No abnormal fluid collections. No obvious inflammatory changes. No free air. Lymph nodes: No enlarged lymph nodes apparent. Vasculature: There is diffuse arthrosclerotic calcification of the abdominal aorta but there is no aneurysm. Bones: There are mild multilevel degenerate changes of the lower thoracic and lower lumbar spine. PELVIS: Reproductive: unremarkable Bladder: There is a Hopson catheter in the urinary bladder which is decompressed. There usually thickened wall of the urinary bladder somewhat more so than would be expected due to decompression and possibly chronic cystitis is a consideration. The prostate is slightly enlarged containing several calcifications. There multiple phleboliths on both sides of the lower pelvis. Appendix: Unremarkable. No distention or periappendiceal phlegmonous change. IMPRESSION: Findings of prominent constipation, small isodense solid lesions midpole of each kidney and follow up study with IV contrast may be helpful. Thickened urinary bladder wall and possible chronic cystitis is a consideration Dictated by: Dr. Dl Nguyen MD 12/05/2019 08:51 Dr. Dl Nguyen MD in [place] 12/05/2019 08:51
[2019-12-05 07:38] LABS: Basophils # 0.1 K/mm3 (0-0.2); Basophils % 0.4 % (0.1-2.0); Eosinophils # 0.1 K/mm3 (0.0-0.4); Eosinophils % 0.4 % (0.1-12.0); Hematocrit 33.7 % (42.0-52.0); Hemoglobin 11.4 g/dL (14.1-18.0); Lymphocytes # 1.3 K/mm3 (0.7-4.5); Lymphocytes % 9.3 % (10-50); Mean Corpuscular HGB Conc 33.7 g/dL (31.8-35.4); Mean Corpuscular Hemoglobin 30.8 pg (27.0-31.2); Mean Corpuscular Volume 91.3 fl (80-94); Mean Platelet Volume 8.9 fl (7.4-10.4); Monocytes # 1.1 K/mm3 (0.1-1.0); Monocytes % 8.1 % (1.7-9.3); Neutrophils % 81.8 % (37.0-80.0); Platelet Count 223 K/mm3 (142-424); Red Blood Count 3.69 M/mm3 (4.60-6.20); White Blood Count 13.4 K/mm3 (4.8-10.8)
[2019-12-05 07:39] LABS: Chloride 100 mmol/L (98-107)
[2019-12-05 07:40] LABS: Potassium 4.8 mmoL/L (3.5-5.1); Sodium 141 mmol/L (136-145)
[2019-12-05 07:42] LABS: Blood Urea Nitrogen 58 mg/dl (9-20); Creatinine Clearance Estimated 35 mL/min (50-200); Estimated Glomerular Filt Rate 39 ml/min (>60); GFR (African American) 47 ML/MIN (>60); Lipase 22 U/L (23-300)
[2019-12-05 07:43] LABS: Alanine Aminotransferase 23 U/L (12-78); Alkaline Phosphatase 98 U/L (38-126); Anion Gap 11.8 mEq/L (5-15); Aspartate Amino Transferase 27 U/L (17-59); Bilirubin,Direct 0.2 mg/dl (0.0-0.4); Bilirubin,Indirect 0.9 mg/dL (0.0-0.9); Bilirubin,Total 1.1 mg/dl (0.2-1.3); Bilirubin,Unconjugated 0.9 mg/dL (0.0-1.1); Calcium 9.8 mg/dl (8.4-10.2); Carbon Dioxide 34 mmol/L (22.0-30.0); Glucose 171 mg/dl (74-100); Total Protein,Serum 6.4 g/dl (6.3-8.2)
--- NOTE | 2019-12-05 07:49 | ECG_ITS ---
APPROVED REPORT Exam: Resting ECG HR:105 bpm ECG Measurements Heart Rate 105 AXES NV 156 P 41 QRSd 78 QRS 18 QT 338 T 44 QTc 446 <Conclusion> Sinus tachycardia Otherwise normal ECG Electronically signed by : Redd Ramirez, 12/06/2019 09:03:05
[2019-12-05 07:55] LABS: Troponin I 0.03 ng/ml (0.00-0.034)
[2019-12-05 08:00] LABS: Microscopic, Urine URINE MICROSCOPIC (MICROSCOPIC)
[2019-12-05 08:01] LABS: Appearance,Urine CLEAR (Clear); Blood, Urine 3+ (Negative); Color,Urine YELLOW (Yellow); Glucose,Urine (UA) Negative (Negative); Ketones,Urine TRACE (Negative); Leukocyte Esterase,Urine 1+ (Negative); Nitrate,Urine Negative (Negative); Protein,Urine 2+ (Negative); Specific Gravity, Urine >= 1.030 (1.005-1.030); Urobilinogen,Urine 0.2 EU/dl (0.2)
[2019-12-05 08:03] LABS: Bilirubin,Urine Negative (Negative)
--- NOTE | 2019-12-05 08:11 | PC.NURSE ---
Pt returned from rad
[2019-12-05 08:17] LABS: Alanine Aminotransferase 24 U/L (12-78); Alkaline Phosphatase 98 U/L (38-126); Aspartate Amino Transferase 28 U/L (17-59); Bilirubin,Direct 0.2 mg/dl (0.0-0.4); Bilirubin,Indirect 0.9 mg/dL (0.0-0.9); Bilirubin,Total 1.1 mg/dl (0.2-1.3); Bilirubin,Unconjugated 0.9 mg/dL (0.0-1.1); Total Protein,Serum 6.4 g/dl (6.3-8.2)
[2019-12-05 08:19] LABS: Amorphous Sediment,Urine 1+ /lpf; Bacteria,Urine 1+ /lpf; Calcium Oxalate Crystals,Urine Trace /lpf
[2019-12-05 08:27] LABS: NT Pro Brain Natriuretic Pep. 778 pg/mL (0-450)
[2019-12-05 08:34] LABS: Coronavirus 19 IgG Antibody Negative (Negative); Coronavirus 19 IgM Antibody Negative (Negative)
--- NOTE | 2019-12-05 09:11 | PC.NURSE ---
Attempted to contact [facility] in regards to pt code status. Their is some miss communication with paper work and code status. MD aware, will continue to monitor
--- NOTE | 2019-12-05 11:22 | HMH.HP ---
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 [facility] History I have reviewed the patient's past medical history: Yes Medical History: Reports:: Asthma, Chronic Obstructive Pulmonary Disease (COPD), Diabetes Mellitus Type 1, Diabetes Mellitus Type 2, Hypertension *Have you ever received a pneumonia vaccine?: Yes *Have you received a flu vaccine this season?: Yes Other Medical History: Reports: Arthritis, Glaucoma Comment:: Hemorrhagic stroke with residual hemiplegia, nonverbal status and G-tube status within the past year Laterality Cases: Bilateral: Myringotomy (Ear Tubes) Other Surgeries: Yes: Other Amputation: No Fractures: No - *Social History Smoking Status: Former smoker Tobacco Type: cigarettes # Packs/Day (cigarettes): 1 Alcohol Intake: never Substance Use Type: denies use *Occupational Status:: disabled Housing: [facility] Household Members: none *Travel in the last 8 weeks: None Family Hx:: Diabetes, Hypertension Review of Systems - Review of Systems Review of systems:: unable to obtain - *Neurologic Denies localized weakness, Denies seizure-like activity Meds Home Medications Medication Instructions Recorded Confirmed Type levothyroxine 75 mcg capsule 100 mcg PO DAILY 11/05/17 12/05/19 History tiotropium bromide 18 mcg capsule 1 cap INHALATION DAILY 11/05/17 12/05/19 History with inhalation device Clopidogrel Bisulfate [Plavix] 75 mg PO DAILY 12/05/19 12/05/19 History Insulin Regular, Human [Humulin R] 7 units SQ QID 12/05/19 12/05/19 History LORazepam [Ativan 0.5mg 0.5 mg PO QID 12/05/19 12/05/19 History tablet] Latanoprost/Pf [Latanoprost 0.005% 7.5 ml OP DAILY 12/05/19 12/05/19 History Eye Drop] Melatonin 3 mg PO HS 12/05/19 12/05/19 History Metoprolol Tartrate 50 mg PO DAILY 12/05/19 12/05/19 History Quetiapine Fumarate [Seroquel 50 50 mg PO TID 12/05/19 12/05/19 History mg Tablets] Sennosides [Senna Laxative] 8.6 mg PO DAILY 12/05/19 12/05/19 History polyethylene glycoL 3350 [Miralax 17 gm PO DAILY 12/05/19 12/05/19 History 17gm Packet] Allergies Allergy/AdvReac Type Severity Reaction Status Date / Time codeine [CODEINE] Allergy Unknown Verified 01/21/19 10:34 penicillin G [PENICILLIN G] Allergy Unknown Verified 01/21/19 10:34 Sulfa (Sulfonamide Allergy Unknown Verified 01/21/19 10:34 Antibiotics) [SULFA (SULFONAMIDE ANTIBIOTICS)] Exam Vital signs and Labs for Last 24 Hours: Temp Pulse Resp BP Pulse Ox 98.2 F 101 H 18 113/63 93 L 12/05/19 10:14 12/05/19 10:14 12/05/19 10:14 12/05/19 10:14 12/05/19 09:47 Laboratory Results - last 24 hr 12/05/19 07:18: WBC 13.4 H, RBC 3.69 L, Hgb 11.4 L, Hct 33.7 L, MCV 91.3, MCH 30.8, MCHC 33.7, RDW 15.0, Plt Count 223, MPV 8.9, Neut % (Auto) 81.8 H, Lymph % (Auto) 9.3 L, [place] % (Auto) 8.1, Eos % (Auto) 0.4, Baso % (Auto) 0.4, Neut # (Auto) 11.0 H, Lymph # (Auto) 1.3, [place] # (Auto) 1.1 H, Eos # (Auto) 0.1, Baso # (Auto) 0.1 12/05/19 07:18: Sodium 141, Potassium 4.8, Chloride 100, Carbon Dioxide 34 H, Anion Gap 11.8, BUN 58 H, Creatinine 1.70 H, Estimated Creat Clear 35, Estimated GFR 39 L, Est GFR ( Amer) 47 L, Glucose 171 H, Calcium 9.8, Troponin I 0.03, Lipase 22 L 12/05/19 07:18: Lactate 2.0 12/05/19 07:18: Total Bilirubin 1.1, Direct Bilirubin 0.2, Conjugated Bilirubin 0.0, Indirect Bilirubin 0.9, Unconjugated Bilirubin 0.9, AST 27, ALT 23, Alkal
[2019-12-05 13:57] LABS: POC Glucose,Bedside 168 (70-110)
--- NOTE | 2019-12-05 14:13 | PC.NURSE ---
PT IS RESTING IN BED ON HIS LEFT SIDE. PT MOANS IN PAIN EVERY TIME HE IS MOVED OR REPOSITIONED. UNABLE TO VOICE HIS NAME/. RASH NOTED ALL OVER BODY ( PCP AWARE AND HE STATES THIS IS A CHRONIC ISSUE) UNSTAGEABLE ULCER NOTED TO COCCYX (MALODOROUS) AND RT HEEL (HEEL PROTECTORS IN PLACE) DRESSING C/D/I TO THE COCCYX. POA WAS CALLED TO GET CONSENT FOR PICTURES AND ALSO TO VERIFY DNR STATUS. ORAL CARE PROVIDED. ABDOMEN SOFT/NON TENDER WITH ACTIVE BOWEL SOUNDS. G-TUBE IN PLACE. PCP WANTS TUBE FEEDS ON HOLD FOR NOW. LUNG SOUNDS HAVE SCATTERED RHONCHI. VSS. WILL CONTINUE TO MONITOR.
[2019-12-05 18:22] LABS: POC Glucose,Bedside 151 (70-110)
[2019-12-05 20:45] LABS: POC Glucose,Bedside 147 (70-110)
[2019-12-06] VITALS (8 sets, daily range): BP systolic 100–120; BP diastolic 59–67; PULSE 103–130; RESP 24–38; TEMP 36.4–38.8; O2SAT 87–96; BMI 19.4
--- NOTE | 2019-12-06 05:35 | PC.NURSE ---
shift summary, pt rested well t/o first part of shift, but has become increasingly restless during the second part of the shift, pt yells out while lying in bed, pt yells out if you touch him, pt respirations have been 21-30, but when counted pt has been yelling out and hard to get to calm down, O2 sats have been 94-96% on 3L NC, HR has been 114-130, systolic BP has been 100-120, diastolic BP has been 64-74, pt has a pressure ulcer to coccyx, dressing in place, C/D/I, rt heel has ulcer and heel protectors are in place, g tube in place, tube feedings currently on hold per PCP, pt alert only to self, catheter in place draining cloudy, yellow urine
[2019-12-06 06:04] LABS: POC Glucose,Bedside 169 (70-110)
[2019-12-06 07:28] LABS: Chloride 109 mmol/L (98-107)
[2019-12-06 07:29] LABS: Potassium 3.8 mmoL/L (3.5-5.1); Sodium 144 mmol/L (136-145)
[2019-12-06 07:30] LABS: Basophils % 0.1 % (0.1-2.0); Eosinophils % 0.1 % (0.1-12.0); Hematocrit 32.4 % (42.0-52.0); Hemoglobin 11.1 g/dL (14.1-18.0); Lymphocytes # 0.8 K/mm3 (0.7-4.5); Mean Corpuscular HGB Conc 34.4 g/dL (31.8-35.4); Mean Corpuscular Hemoglobin 31.3 pg (27.0-31.2); Mean Corpuscular Volume 91.1 fl (80-94); Monocytes # 1.1 K/mm3 (0.1-1.0); Monocytes % 7.4 % (1.7-9.3); Neutrophils # 12.2 K/mm3 (1.8-7.8); Neutrophils % 86.3 % (37.0-80.0); Platelet Count 219 K/mm3 (142-424); Red Blood Count 3.56 M/mm3 (4.60-6.20); White Blood Count 14.1 K/mm3 (4.8-10.8)
[2019-12-06 07:31] LABS: Blood Urea Nitrogen 55 mg/dl (9-20); Creatinine Clearance Estimated 37 mL/min (50-200); Estimated Glomerular Filt Rate 53 ml/min (>60); GFR (African American) 64 ML/MIN (>60)
[2019-12-06 07:32] LABS: Anion Gap 11.8 mEq/L (5-15); Calcium 9.8 mg/dl (8.4-10.2); Carbon Dioxide 27 mmol/L (22.0-30.0); Glucose 182 mg/dl (74-100); MANUAL DIFFERENTIAL MANUAL DIFFERENTIAL (MANUAL DIFF)
[2019-12-06 08:13] LABS: Eosinophils % 1 % (0-3); Lymphocytes % 13 % (10-50); Monocytes % 1 % (2-9); Neutrophils % 84 % (42-76); Platelet Estimate Normal; RBC Morphology Normal; Total Cells Counted 100
--- NOTE | 2019-12-06 08:47 | HMH.ACPN2 ---
Internal Medicine - PN: Subj *Date: 12/06/19 *Time: 08:47 Interval history: Patient remained afebrile overnight. Has been somewhat more agitated with tactile stimuli with some moaning. Vital signs remained stable except for very mild sinus tachycardia. Exam Vital signs and Labs for Last 24 Hours: Temp Pulse Resp BP Pulse Ox 98.7 F 103 H 26 H 109/67 L 90 L 12/06/19 07:54 12/06/19 07:54 12/06/19 07:54 12/06/19 07:54 12/06/19 07:54 Laboratory Results - last 24 hr 12/05/19 07:40: Urine Color Yellow, Urine Appearance Clear, Urine pH 5.0, Ur Specific [place] >= 1.030, Urine Protein 2+, Urine Glucose (UA) Negative, Urine Ketones Trace, Urine Blood 3+, Urine Nitrate Negative, Urine Bilirubin Negative, Urine Urobilinogen 0.2, Ur Leukocyte Esterase 1+ A, Urine RBC 10-20, Urine WBC 5-10, Ur Squamous Epith Cells 3-5, Calcium Oxalate Crystal Trace, Amorphous Sediment 1+, Urine Bacteria 1+ 12/05/19 12:11: POC Glucose 168 H 12/05/19 16:18: POC Glucose 151 H 12/05/19 20:37: POC Glucose 147 H 12/06/19 05:55: POC Glucose 169 H 12/06/19 06:15: WBC 14.1 H, RBC 3.56 L, Hgb 11.1 L, Hct 32.4 L, MCV 91.1, MCH 31.3 H, MCHC 34.4, RDW 15.0, Plt Count 219, MPV 9.0, Neut % (Auto) 86.3 H, Lymph % (Auto) 6.0 L, [place] % (Auto) 7.4, Eos % (Auto) 0.1, Baso % (Auto) 0.1, Neut # (Auto) 12.2 H, Lymph # (Auto) 0.8, [place] # (Auto) 1.1 H, Eos # (Auto) 0.0, Baso # (Auto) 0.0, Total Counted 100, Neutrophils % (Manual) 84 H, Band Neutrophils % 1.0, Lymphocytes % (Manual) 13, Monocytes % (Manual) 1 L, Eosinophils % (Manual) 1, Platelet Estimate Normal, RBC Morphology Normal 10/04/20 06:15: Sodium 144, Potassium 3.8 D, Chloride 109 H, Carbon Dioxide 27 D, Anion Gap 11.8, BUN 55 H, Creatinine 1.30 H D, Estimated Creat Clear 37, Estimated GFR 53 L, Est GFR ( Amer) 64 D, Glucose 182 H, Calcium 9.8 I & O for Last 24 hours: Intake & Output 12/03/19 12/04/19 12/05/19 12/06/19 11:59 11:59 11:59 11:59 Intake Total 356 / 356 Output Total 750 / 750 Balance -394 / -394 Weight 133 lb 9 oz 131 lb 4 oz Microbiology Reports for the Last 24 Hours: Microbiology 12/05/19 07:40 Urine,Catheterized Urine Culture - Preliminary Gram Negative Rods Narrative: Remains unresponsive to verbal stimuli. Moans and minimal withdrawal symptoms to vigorous tactile stimuli. Skin lesions unchanged. Rhonchorous lungs. Heart rate regular. Minimal tachycardia. Abdomen soft, G-tube site looks clear. Neurologic exam markedly abnormal as previously described. Assessment and Plan (1) SHIKHA (acute kidney injury) Status: Acute Category: Medical Code(s): N17.9 - Acute kidney failure, unspecified (2) Acute UTI (urinary tract infection) Status: Acute Category: Medical Code(s): N39.0 - Urinary tract infection, site not specified (3) SIRS (systemic inflammatory response syndrome) Status: Acute Category: Medical Code(s): R65.10 - Systemic inflammatory response syndrome (SIRS) of non-infectious origin without acute organ dysfunction - Assessment and plan all Dx Assessment and Plan for all problems:: Significant sepsis event. Kidney injury seems to be improving. Continue antibiotics, await cultures and sensitivity results. Restart medications cautiously for thyroid, beta-ulises and Ativan as needed for comfort and sedation issues. Plan to transfer back to detention when cultures are back. Patient's CODE STATUS has been moved to DNR status after discussion with daughter yesterday. I also plan to bring up hospice care on transfer back to detention.
--- NOTE | 2019-12-06 12:01 | HMH.PHAVTE ---
[facility] Pharmacy VTE Monitoring - Patient Demographics Admission date: 12/06/19 Report Date: 12/06/19 Time: 12:01 Allergies/Adverse Reactions: Patient Allergies codeine [CODEINE] Allergy (Unknown, Verified 01/21/19 10:34) penicillin G [PENICILLIN G] Allergy (Unknown, Verified 01/21/19 10:34) Sulfa (Sulfonamide Antibiotics) [SULFA (SULFONAMIDE ANTIBIOTICS)] Allergy (Unknown, Verified 01/21/19 10:34) Height: 1.75 m Weight: 59.534 kg Patient Problems: Current Active Problems Acute UTI (urinary tract infection) (Acute) Hematuria (Acute) SIRS (systemic inflammatory response syndrome) (Acute) SHIKHA (acute kidney injury) (Acute) - VTE Risk Labs: VTE Related Lab Results Hgb 11.1 g/dL (14.1-18.0) L 12/06/19 06:15 Hct 32.4 % (42.0-52.0) L 12/06/19 06:15 Plt Count 219 K/mm3 (142-424) 12/06/19 06:15 BUN 55 mg/dl (9-20) H 12/06/19 06:15 Creatinine 1.30 mg/dl (0.66-1.25) H D 12/06/19 06:15 Estimated Creat Clear 37 mL/min (50-200) 12/06/19 06:15 VTE Score: 4 VTE Risk Level: Low Risk - Prophylaxis Types of VTE Prophylaxis: TEDS Knee High (RAVIN HOSE ORDER PLACED) Location of Applied Device: Bilateral Lower Extremeties
[2019-12-06 13:01] LABS: POC Glucose,Bedside 188 (70-110)
--- NOTE | 2019-12-06 17:56 | PC.NURSE ---
PT IS RESTING IN BED. PT HAS YELLED OUT MORE FREQUENTLY THIS SHIFT. PT HAD A RECTAL TEMP 101.9 THIS AFTERNOON. RECEIVED TYLENOL THROUGH G-TUBE. LUNG SOUNDS HAVE SCATTERED RHONCHI. BOWEL SOUNDS HYPOACTIVE. UNSTAGEABLE ULCER NOTED TO THE COCCYX AND RT HEEL. CHRONIC RASH NOTED ALL OVER BODY. TURNED AND REPOSITIONED AND ORAL CARE FREQUENTLY. TUBE FEEDINGS STILL REMAIN ON HOLD PER PCP. WILL CONTINUE TO MONITOR.
[2019-12-06 18:31] LABS: POC Glucose,Bedside 182 (70-110)
[2019-12-06 20:30] LABS: POC Glucose,Bedside 190 (70-110)
[2019-12-07] VITALS (13 sets, daily range): BP systolic 102–174; BP diastolic 60–76; PULSE 102–129; RESP 34–50; TEMP 36.9–38.8; O2SAT 88–92; BMI 20.2
--- NOTE | 2019-12-07 04:53 | PC.NURSE ---
Addendum entered by Ana Langston RN 12/07/19 05:50: pt did have a rectal temp of 101.9 around 0500, acetaminophen given per MAR, respirations do remain high, but when talking to the pt respirations will slow down and he will try to communicate, Original Note: shift summary, pt has rested t/o shift, pt still yells out randomly and yells out when touched, pt respirations have been elevated this shift at 38-42 per minute, pt O2 sats remain 90-91% on 3L NC, pt has spontaneous respirations with no distress noted, pt has inspiratory and expiratory rhonchi t/o, HR has remained elevated, 104-129, ativan given one time via G-tube, pt has remained afebrile this shift, systolic BPs 109-127, diastolic BPs 59-70, catheter remains in place draining cloudy, yellow urine
[2019-12-07 05:41] LABS: POC Glucose,Bedside 173 (70-110)
--- NOTE | 2019-12-07 06:09 | PC.NURSE ---
pt tube feedings on hold still per PCP
[2019-12-07 06:24] LABS: Chloride 113 mmol/L (98-107); Potassium 3.8 mmoL/L (3.5-5.1); Sodium 149 mmol/L (136-145)
[2019-12-07 06:27] LABS: Anion Gap 12.8 mEq/L (5-15); Blood Urea Nitrogen 54 mg/dl (9-20); Calcium 9.6 mg/dl (8.4-10.2); Carbon Dioxide 27 mmol/L (22.0-30.0); Creatinine Clearance Estimated 50 mL/min (50-200); Estimated Glomerular Filt Rate 72 ml/min (>60); GFR (African American) 87 ML/MIN (>60); Glucose 206 mg/dl (74-100)
[2019-12-07 06:32] LABS: Basophils % 0.1 % (0.1-2.0); Hematocrit 34.5 % (42.0-52.0); Hemoglobin 11.4 g/dL (14.1-18.0); Lymphocytes # 0.8 K/mm3 (0.7-4.5); Lymphocytes % 4.1 % (10-50); Mean Corpuscular HGB Conc 32.9 g/dL (31.8-35.4); Mean Corpuscular Hemoglobin 29.9 pg (27.0-31.2); Mean Corpuscular Volume 90.9 fl (80-94); Mean Platelet Volume 8.9 fl (7.4-10.4); Monocytes # 1.2 K/mm3 (0.1-1.0); Monocytes % 6.1 % (1.7-9.3); Neutrophils # 17.8 K/mm3 (1.8-7.8); Neutrophils % 89.7 % (37.0-80.0); Platelet Count 273 K/mm3 (142-424); Red Cell Distribution Width 15.1 % (11.5-17.5); White Blood Count 19.8 K/mm3 (4.8-10.8)
--- NOTE | 2019-12-07 06:51 | XR_ITS ---
PROCEDURE: XR CHEST PORTABLE CLINICAL HISTORY: fever, cough COMPARISON: CR [id number] XR ribs LT min 3V w CXR1V from 10/31/2017 CR XR CHEST PORTABLE from 07/14/2019 CR XR CHEST PORTABLE from 12/05/2019 FINDINGS: The cardiomediastinal silhouette and pulmonary vascularity are within normal limits. There is consolidation in the left lower lobe and to lesser degree in the right lower lobe consistent with bilateral pneumonia. Small effusion is present on the left. There is severe subacromial stenosis on the right consistent with chronic rotator cuff tear with superior elevation of the right humeral head and mild osteoarthritic changes of the right shoulder joint. No acute bony abnormalities. IMPRESSION: Bilateral pneumonia more extensive on the left with small left effusion Dictated by: Ousmane Diggs MD 12/07/2019 11:09 Ousmane Diggs MD in [place] 12/07/2019 11:09
[2019-12-07 07:07] LABS: MANUAL DIFFERENTIAL MANUAL DIFFERENTIAL (MANUAL DIFF)
[2019-12-07 08:22] LABS: Lymphocytes % 6 % (10-50); Monocytes % 5 % (2-9); Neutrophils % 89 % (42-76); Platelet Estimate Normal; Total Cells Counted 100
[2019-12-07 08:23] LABS: Hypochromasia 1+
--- NOTE | 2019-12-07 08:28 | HMH.ACPN2 ---
Internal Medicine - PN: Subj *Date: 12/07/19 *Time: 08:28 Interval history: Overnight patient has not done well. Fever curve up to 103 degrees. Increasing tachypnea. Increasing tachycardia. Exam Vital signs and Labs for Last 24 Hours: Temp Pulse Resp BP Pulse Ox 101.3 F H 129 H 34 H 127/62 90 L 12/07/19 06:27 12/07/19 04:00 12/07/19 06:31 12/07/19 04:00 12/07/19 04:00 Laboratory Results - last 24 hr 12/06/19 11:36: POC Glucose 188 H 12/06/19 16:14: POC Glucose 182 H 12/06/19 20:12: POC Glucose 190 H 12/07/19 05:24: POC Glucose 173 H 12/07/19 05:38: WBC 19.8 H D, RBC 3.80 L, Hgb 11.4 L, Hct 34.5 L, MCV 90.9, MCH 29.9, MCHC 32.9, RDW 15.1, Plt Count 273, MPV 8.9, Neut % (Auto) 89.7 H, Lymph % (Auto) 4.1 L, [place] % (Auto) 6.1, Eos % (Auto) 0.0 L, Baso % (Auto) 0.1, Neut # (Auto) 17.8 H, Lymph # (Auto) 0.8, [place] # (Auto) 1.2 H, Eos # (Auto) 0.0, Baso # (Auto) 0.0, Total Counted 100, Neutrophils % (Manual) 89 H, Lymphocytes % (Manual) 6 L, Monocytes % (Manual) 5, Platelet Estimate Normal, Hypochromasia 1+ 12/07/19 05:38: Sodium 149 H, Potassium 3.8, Chloride 113 H, Carbon Dioxide 27, Anion Gap 12.8, BUN 54 H, Creatinine 1.00 D, Estimated Creat Clear 50, Estimated GFR 72, Est GFR ( Amer) 87 D, Glucose 206 H, Calcium 9.6 I & O for Last 24 hours: Intake & Output 12/04/19 12/05/19 12/06/19 12/07/19 11:59 11:59 11:59 11:59 Intake Total 356 / 356 2697 / 2697 Output Total 750 / 750 410 / 410 Balance -394 / -394 2287 / 2287 Weight 133 lb 9 oz 131 lb 4 oz 136 lb 5 oz Microbiology Reports for the Last 24 Hours: Microbiology 12/05/19 07:40 Urine,Catheterized Urine Culture - Preliminary Escherichia coli 12/05/19 07:18 Blood Blood Culture - Preliminary NO GROWTH AFTER 48 HOURS 12/05/19 07:18 Blood Blood Culture - Preliminary NO GROWTH AFTER 48 HOURS Narrative: Patient is unresponsive to verbal or tactile stimuli. Appears septic, breathing with a great deal of difficulty with rhonchorous air sounds. Dry oral mucosa. Poor air movement. Tachycardia noted. Poor skin turgor. Contractures and neurologic deficits as previously noted. Abdomen is soft. Assessment and Plan (1) SHIKHA (acute kidney injury) Status: Acute Category: Medical Code(s): N17.9 - Acute kidney failure, unspecified (2) Acute UTI (urinary tract infection) Status: Acute Category: Medical Code(s): N39.0 - Urinary tract infection, site not specified (3) SIRS (systemic inflammatory response syndrome) Status: Acute Category: Medical Code(s): R65.10 - Systemic inflammatory response syndrome (SIRS) of non-infectious origin without acute organ dysfunction - Assessment and plan all Dx Assessment and Plan for all problems:: Significant septic event. Patient's prognosis is grim. DNR status reaffirmed with daughter yesterday. Continue supportive care, morphine for air hunger. I anticipate a terminal outcome.
--- NOTE | 2019-12-07 09:20 | SW/DCPLANNER ---
Addendum entered by Elodia Mejía 12/08/19 07:54: PATIENT REMAINS IN THE HOSPITAL UNDER HOSPICE PALLIATIVE CARE......COMFORT MEASURES PROVIDED...NO MAJOR CHANGES NOTED.... Addendum entered by Elodia Mejía 12/07/19 13:04: HOSPICE CAME AND EVALUATED PATIENT AND ACCEPTED HIM FOR INPATIENT SERVICES... I CALLED RAIN AT [facility] AND TOLD HER AND SOMEONE FROM THE FACILITY IS GOING TO CALL THE DAUGHTER TO GIVE THE BED UP... PATIENT IS NOW HOSPICE/PALLIATIVE CARE.... Original Note: PATIENT IS A RESIDENT OF [facility] WHO PRESENTED INTO THE HOSPITAL WITH A UTI AND MULTIPLE OTHER HEALTH PROBLEMS... I AM GOING TO MAKE A REFERRAL TO HOSPICE THIS MORNING FOR AN INPATIENT HOSPITAL ADMISSION.. I HAVE ALSO SPOKEN WITH THE SURVEY RODMAN, RAIN AT [facility] TO INFORM HER THAT WE ARE GOING TO DO AN INPATIENT AND MR AU WILL NOT BE RETURNING BACK THERE... IF THIS SHOULD CHANGE I WILL LET HER KNOW...WAITING ON HOSPICE TO COME...
--- NOTE | 2019-12-07 18:14 | PC.NURSE ---
EARLY THIS MORNING PT WAS BREATHING 50/MIN. HR WAS IN THE 120'S. LUNG SOUNDS HAD RHONCHI T/O. PT WAS NOT RESPONSIVE TO TACTILE STIMULI LIKE HE WAS YESTERDAY. PCP NOTIFIED AND HE ORDERED MORPHINE 2 MG IV ONE TIME. PT'S RESPIRATIONS DECREASED FOR A SHORT PERIOD OF TIME. PCP WANTED THE DAUGHTER NOTIFIED TO SEE IF SHE WAS AGREEABLE TO HOSPICE. NOTIFED DAUGHTER AND SHE STATED SHE WANTED HER FATHER TO BE KEPT COMFORTABLE AND SHE WAS OKAY WITH HER DAD GOING HOSPICE. CALLED PCP TO GET COMFORT MEDS ORDERED AND TO LET HIM KNOW HOSPICE WAS BEING NOTIFIED. DAUGHTER ARRIVED TO THE ROOM BEFORE HOSPICE TO SIT WITH PT. HOSPICE CAME AND TALKED TO DAUGHTER AND DAUGHTER WANTED PT TO BE KEPT HERE AT [facility] WHILE UNDER HOSPICE CARE. PT HAS BEEN RESTING COMFORTABLY IN THE BED AND HAS BEEN MEDICATED WITH MORPHINE AND ATIVAN PRN FOR AIR HUNGER. PT'S DAUGHTER STAYED FOR SEVERAL HOURS AND WENT HOME AT ABOUT 1700. PT'S DAUGHTER STATED TO CALL HER WHEN PT PASSES B/C SHE NEEDED TO GET HOME. PT'S NIECE WAS ALSO WITH PT'S DAUGHTER WHEN SHE LEFT AND STATED SHE WOULD LIKE TO BE NOTIFIED ALSO. PT HAS BEEN REPOSITIONED IN THE BED BUT SEEMS TO ONLY BE COMFORTABLE ON HIS LEFT SIDE. ORAL CARE PROVIDED. ALL OTHER MEDS BESIDES COMFORT MEDS HAVE BEEN DC'D. IV KVO. WILL CONTINUE TO MONITOR.
[2019-12-08 04:00] VITALS: BP 108/61; PULSE 119; RESP 38; TEMP 36.6; O2SAT 89
--- NOTE | 2019-12-08 04:38 | PC.NURSE ---
shift summary, no acute changes since prior assessment, pt will moan out if touched or moved, coarse crackles with inspiratory and expiratory rhonchi, O2 sat 88-89% on 4L, pt has remained tachy with HR 109-119, catheter in place draining cloudy yellow urine
[2019-12-08 05:00] VITALS: BMI 19.7
[2019-12-08 08:00] VITALS: BP 94/72; PULSE 122; RESP 28; TEMP 38.6; O2SAT 87
--- NOTE | 2019-12-08 08:06 | HMH.ACPN2 ---
Internal Medicine - PN: Subj *Date: 12/08/19 *Time: 08:06 Interval history: Patient remains obtunded, poorly responsive. Exam Vital signs and Labs for Last 24 Hours: Temp Pulse Resp BP Pulse Ox 97.9 F 119 H 38 H 108/61 L 89 L 12/08/19 04:00 12/08/19 04:00 12/08/19 04:00 12/08/19 04:00 12/08/19 04:00 Laboratory Results - last 24 hr 12/05/19 07:40: Urine Color Yellow, Urine Appearance Clear, Urine pH 5.0, Ur Specific [place] >= 1.030, Urine Protein 2+, Urine Glucose (UA) Negative, Urine Ketones Trace, Urine Blood 3+, Urine Nitrate Negative, Urine Bilirubin Negative, Urine Urobilinogen 0.2, Ur Leukocyte Esterase 1+ A, Urine RBC 10-20, Urine WBC 5-10, Ur Squamous Epith Cells 3-5, Calcium Oxalate Crystal Trace, Amorphous Sediment 1+, Urine Bacteria 1+ 12/07/19 05:38: Total Counted 100, Neutrophils % (Manual) 89 H, Lymphocytes % (Manual) 6 L, Monocytes % (Manual) 5, Platelet Estimate Normal, Hypochromasia 1+ I & O for Last 24 hours: Intake & Output 12/05/19 12/06/19 12/07/19 12/08/19 11:59 11:59 11:59 11:59 Intake Total 356 / 356 2697 / 2697 0 / 0 Output Total 750 / 750 410 / 410 850 / 850 Balance -394 / -394 2287 / 2287 -850 / -850 Weight 133 lb 9 oz 131 lb 4 oz 136 lb 5 oz 133 lb 5 oz Microbiology Reports for the Last 24 Hours: Microbiology 12/05/19 07:40 Urine,Catheterized Urine Culture - Final Escherichia coli Staphylococcus epidermidis 12/05/19 07:18 Blood Blood Culture - Preliminary NO GROWTH AFTER 48 HOURS 12/05/19 07:18 Blood Blood Culture - Preliminary NO GROWTH AFTER 48 HOURS Narrative: Patient is unresponsive to verbal or tactile stimuli. Appears septic, breathing with a great deal of difficulty with rhonchorous air sounds. Dry oral mucosa. Poor air movement. Tachycardia noted. Poor skin turgor. Contractures and neurologic deficits as previously noted. Abdomen is soft. Assessment and Plan (1) SHIKHA (acute kidney injury) Status: Acute Category: Medical Code(s): N17.9 - Acute kidney failure, unspecified (2) Acute UTI (urinary tract infection) Status: Acute Category: Medical Code(s): N39.0 - Urinary tract infection, site not specified (3) SIRS (systemic inflammatory response syndrome) Status: Acute Category: Medical Code(s): R65.10 - Systemic inflammatory response syndrome (SIRS) of non-infectious origin without acute organ dysfunction - Assessment and plan all Dx Assessment and Plan for all problems:: Terminally ill. Continue comfort measures. Anticipate terminal outcome.
--- NOTE | 2019-12-08 13:00 | PC.NURSE ---
Walked in pt's room @ 1245 to check on him. He was agonal breathing with eyes open. He took his last breath at 1252. Primary RN is off the floor at this time. Called Dr. Ramirez's office and spoke to Ebonie. She informs me that Dr. Ramirez is in [place] today and requests for ED MD to pronounce TOD. Called ED and spoke to Evon Donnelly. She will send ED MD up to pronounce.
--- NOTE | 2019-12-08 13:04 | PC.NURSE ---
Dr. Falcon @ [facility] and pronounced KANE @ [id number]. Contacted daughter/next of kin (Helen Heard) and updated her. She verbalized understanding and will come to the hospital to sign provisional.
--- NOTE | 2019-12-09 10:59 | P.DN_ITS ---
Discharge Sum: Prov - Provider Primary care physician: Redd Ramirez MD Visit Care Team Role Provider Type Redd Ramirez MD Attending Provider Staff Physician Primary Care Provider Saman Palm MD Admit Provider Staff Physician Emergency Provider Admitting clinician: Redd Ramirez Consults: 12/07/19 09:20 Care Management Consult [Consult to Case Management] [CONS] Routine Reason For Consult: Hospice consult Discharge Sum: Diag - PCOD Cause of : Urosepsis Discharge Sum: Summary - Date and Time Date of admission: 12/05/19 10:52 Date of : 12/08/19 Time of : 13:04 - Hospital Course prior to Hospital Course Information: 84-year-old white male, long-term resident of [facility] 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 Agree with admission, IV antibiotics, supportive care. I had a discussion with patient's daughter, Helen Heard regarding further care, CODE STATUS changed to DNR, we will discuss hospice care over the next day or so. Above information for H&P. Patient was made DNR, hospice consulted. - Summary Details: Patient was admitted initially, aggressive antibiotics were given, patient did not do well even on appropriate antibiotic therapy, increasing leukocytosis, diminishing effectiveness of cardiac output based on worsening tissue perfusion. Discussed case with family, recommended hospice care, patient transition to hospice care 1 day before , palliative care was administered and patient of his sepsis at the date and time noted. - Additional Data Confirmation of as documented by pronouncing clinician: no pulse Family: contacted Attending physician: Redd Ramirez MD
== END 2019-12-08 18:14 | disposition expired | DRG 690 ==
LOC: ER 08:47 → 2ND 09:00
PROVIDERS: Admitting Provider Emergency Medicine; Emergency Provider Emergency Medicine; PCP Internal Medicine Adolescent Medicine; Visit Provider Internal Medicine Adolescent Medicine
DX: N39.0 Urinary tract infection, site not specified (principal); N17.9 Acute kidney failure, unspecified; R65.10 Systemic inflammatory response syndrome (SIRS) of non-infectious origin without acute organ dysfunction; I69.159 Hemiplegia and hemiparesis following nontraumatic intracerebral hemorrhage affecting unspecified side; J44.9 Chronic obstructive pulmonary disease, unspecified; E11.9 Type 2 diabetes mellitus without complications; Z79.4 Long term (current) use of insulin; I10 Essential (primary) hypertension; E03.9 Hypothyroidism, unspecified; Z88.0 Allergy status to penicillin; Z88.5 Allergy status to narcotic agent; Z88.2 Allergy status to sulfonamides; Z87.891 Personal history of nicotine dependence; Z66 Do not resuscitate; I69.121 Dysphasia following nontraumatic intracerebral hemorrhage; I69.122 Dysarthria following nontraumatic intracerebral hemorrhage; L85.0 Acquired ichthyosis; L89.159 Pressure ulcer of sacral region, unspecified stage; Z93.1 Gastrostomy status
CPT/HCPCS: 36415; 71045; 74176; 80048; 80076; 81001; 82962; 83605; 83690; 83880; 84484; 85007; 85025; 86328; 87040; 87086; 87088; 87186; 93005; 94760; 96365; 99285; J1335